=== PATIENT | male | born 1975 | race Caucasian/White ===

== ENCOUNTER 2017-09-20 19:30 | Emergency (ER) | payer MEDICAID, OTHER ==
[2017-09-20] MEDS ORDERED: IBUPROFEN 600 MG TAB PO ONE (20:01)
--- NOTE | 2017-09-20 20:38 | EDPHY ---
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 Recently he started doing some stretching and some specific hip flexor exercises. A few nights ago he developed more hip pain. Pain was bad enough that he could not sleep although after taking some ibuprofen he was able to get some sleep. Yesterday he was moving some heavy items which made his pain worse. He describes it is an achiness, not sharp, radiates to the back and buttock. Walking makes it worse. Sometimes hard to find a comfortable position. Contents of 10 point review of systems otherwise negative except for what is mentioned in HPI. General Appearance: Alert, no distress. Eyes: Pupils equal and round no icterus Respiratory: No respiratory distress, lungs clear to auscultation bilaterally Abdomen: Soft nontender nondistended. Tenderness to the right groin no significant lymphadenopathy. Normal external genitalia no hernias. Neurological: Awake, alert, no focal deficits. Skin: Warm and dry, no rashes. Musculoskeletal: Neck is supple nontender. Extremities are symmetrical, full range of motion, no edema. Right hip is tenderness to palpate posteriorly and anteriorly. No pain with axial loading. Some pain with passive range of motion in abduction, not abduction. Remainder of extremity exam normal. Psychiatric: Patient is oriented X 3, there is no agitation. 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 Appendectomy. Social history: Nonsmoker, wine with dinner. Smoking Status: Never smoked Constitutional: Initial Vital Signs Temperature (C) 37.0 C 09/20/17 19:42 Heart Rate 76 09/20/17 19:42 Respiratory Rate 16 09/20/17 19:42 Blood Pressure 126/89 H 09/20/17 19:42 O2 Sat (%) 95 09/20/17 19:42 O2 Delivery Mode Room Air Allergies/Adverse Reactions: No Known Allergies Allergy (Unverified 09/20/17 19:41) Home Medications: Medication Instructions Recorded NK [No Known Home Meds] 09/20/17 Medical Decision Making - Diagnostics Imaging Results: X-ray of the right hip and pelvis shows no acute changes, no bony lesions, normal joint space. Imaging: I viewed and interpreted images myself Differential Diagnosis: Differential diagnosis includes but is not limited to septic joint, groin pull, hernia, sciatica. After evaluation unclear cause of patient's pain although suspect musculoskeletal in origin. No infectious symptoms or findings of joint effusion to suggest septic joint. No discrete trauma at the beginning of his pain. Suspect overuse type injury versus possible groin pull. No signs of hernia, urinary etiology, other intra-abdominal process. Will recommend ibuprofen for the next 5 days as well as ice. Orthopedic follow-up for possible MRI if not improving. May benefit from physical therapy as well. Stable for discharge. Return precautions discussed in detail. - Data Points Medications Given: Discontinued Medications Ibuprofen (Motrin) 600 mg PO EDNOW ONE Stop: 09/20/17 20:02 Last Admin: 09/20/17 20:05 Dose: 600 mg Departure - Departure Clinical Impression: Hip pain, right Condition: Good Instructions: Hip Pain (ED) Additional Instructions: Use ibuprofen 600 mg 3 times a day for the next 4-5 days. Ice as necessary for pain. He can also use Tylenol. Call the orthopedist office for an appointment early next week. Return to the emergency department if he developed fevers, nausea vomiting, other concerning new symptoms. Referrals: NONE *PRIMARY CARE P,. [Primary Care Provider] - As per Instructions Pietro Gonzalez MD [Medical Doctor] - As per Instructions
[2017-09-20 20:44] VITALS: BP 125/65
== END 2017-09-20 20:40 | disposition home or self-care (01) ==
LOC: CED 19:30
DX: M25.551 Pain in right hip (principal)
CPT/HCPCS: 73502-PO